=== PATIENT | male | born 1985 | race Caucasian/White ===

== ENCOUNTER 2016-09-02 23:32 | Emergency (ER) | payer BC, OTHER ==
[~2016-09-02] VITALS: Ht 185.4 cm; Wt 79.3 kg
[~2016-09-02 23:32] MED LIST: ALBUAER2 INH; BUPR100T4 PO; TRAZ1TAB16 PO
[2016-09-02 23:38] VITALS: TEMP 36.8; Ht 185.4 cm; Wt 79.3 kg
[2016-09-03] MEDS ORDERED: KETOROLAC TROMETHAMINE 60 MG/2 ML VIAL IM STA
--- NOTE | 2016-09-03 01:16 | EMERGENCY ROOM VISIT NOTE ---
History First contact with patient: 23:43 Chief Complaint: BACK PAIN Stated Complaint: LWR BACK PAIN History of Present Illness The patient is a 31 year old male who presents to the Emergency Room with complaints of low back pain after he was on the bed and his child jumped on his back. He describes the pain as severe, 9 out of 10 worse with movement and better with rest. It does not radiate. Patient denies radiating pain, fever, chills, IV drug abuse, numbness, tingling, loss of bowel or bladder control, saddle anesthesia, abdominal pain, chest pain or any other medical complaints. Review of Systems See HPI for pertinent positives & negatives. A total of 10 systems reviewed and were otherwise negative. Past Medical/Surgical History none Social History Smoking Status: Never Smoker Drug Use: none Housing Status: lives with family Current/Historical Medications Scheduled PRN Acetaminophen (Tylenol), 1,000 MG PO DIRECTED PRN for Pain or Fever Allergies Uncoded Allergies: BABY POWDER (Allergy, Unknown, rash, 09/02/16) Physical Exam Vital Signs Date Time Temp Pulse Resp B/P Pulse Ox O2 Delivery O2 Flow Rate FiO2 09/02/16 23:38 36.8 82 20 154/81 95 Room Air Physical Exam VITALS: Vitals are noted on the nurse's note and reviewed by myself. Vital signs stable. GENERAL: Pleasant male ambulate without difficulties, in no acute distress, nondiaphoretic, well-developed well-nourished. SKIN: Capillary reflex less than 2 seconds. HEENT: Normocephalic. PERRLA. EOMI. Nares patent. Mucous membranes moist. Neck is supple without nuchal rigidity. HEART: Regular rate and rhythm without murmurs gallops or rubs. LUNGS: Clear to auscultation bilaterally without wheezes, rales or rhonchi. No retractions or accessory muscle use. ABDOMEN: Positive bowel sounds x 4. Normal tympanic percussion. Soft, nontender, without masses or organomegaly. Peoples sign negative. No guarding or rebound tenderness. MUSCULOSKELETAL: No gross musculoskeletal defects. Lumbar tenderness over L4 5. No thoracic tenderness. Negative straight leg raise. Patient can walk on toes and heels. 5 out of 5 strength throughout. No pedal edema. No calf tenderness. NEURO: Patient was alert and oriented to person place and time. Normal sensation to light and sharp touch. Deep tendon reflexes 2+ patella bilaterally. No focal neurological deficits. Medical Decision & Procedures Medications Administered Medications (Trade) Dose Ordered Sig/Sammie Route Start Time Stop Time Status Last Admin Dose Admin Ketorolac Tromethamine (Toradol Inj) 60 mg NOW STAT IM 09/03/16 00:00 09/03/16 00:02 DC 09/03/16 00:10 60 MG ED Course Prior records/ancillary studies reviewed. Triage Nursing notes reviewed. The patient's history was concerning for back pain. Differential diagnosis: Etiologies such as musculoskeletal, disc herniation, fracture, aortic disease, metastatic disease, cord compression, discitis, infection, renal colic, gastrointestinal, acute exacerbation of chronic back pain, sciatica, cauda equina, as well as others were entertained. Physical findings: As above. No focal neurologic findings noted. ER treatment provided: Toradol On reassessment the patient felt better. Diagnostics interpreted by me: Imaging studies: CT L SPINE: No acute or healing fracture or malalignment. No critical central canal stenosis. No hematoma or other findings to explain the clinical presentation. Radiologist: Faheem Nguyen M.D. This appears to be consistent with lumber strain. Patient was neurovascularly and neurologically intact. No deficits on exam. Unremarkable workup as above. He was advised to stretch the area out to take anti-inflammatories as needed. He was advised to follow-up with family care in a few days or here in the ER sooner for severe pain, inability to walk, fevers, worsening signs or symptoms or as needed. The patient's physical examination and detailed history did not reveal any red flags for back pain such as those listed in the differential diagnosis. Therefore advanced diagnostics and consultations were felt to be unwarranted. By the evaluation outlined above emergent etiologies such as fracture, aortic disease, metastatic disease, infection, renal colic, gastrointestinal, cord compression, cauda equina, as well as others were deemed relatively unlikely. The pt informed about the findings as listed above. All questions were answered and pleased with the treatment. Return instructions were outlined and the patient was discharged in stable condition. Outpatient prescription management: motrin Referral: The patient was referred back to primary care physician for follow-up in 2 to 3 days for a recheck of the current condition. Medical Decision As above Impression Primary Impression: Lumbar strain Departure Information Dispostion Home / Self-Care Condition GOOD Referrals Napoleon Muñiz M.D. (PCP) Patient Instructions My [facility] Additional Instructions Ibuprofen(Motrin, Advil) may be used for fever or pain. Use 600mg every six hours as needed. Take with food. Avoid using more than 2400mg in a 24 hour period. Do not use 2400mg per day for more than three consecutive days without physician direction. Prolonged inappropriate use can lead to stomach upset or ulcers. This medication can be taken if you need to drive, work, or perform activities which may be dangerous when taking narcotic pain medication. (AND/OR) Acetaminophen(Tylenol) may be used for fever or pain. Use 1000mg every six hours as needed. Avoid using more than 3000mg in a 24 hour period. This medication can be taken if you need to drive, work, or perform activities which may be dangerous when taking narcotic pain medication. Rest and avoid heavy lifting until your symptoms resolve and then gradually return to full activity. A good rule of thumb is if it hurts your back to perform a certain activity, then it should be avoided until you are healthy again. A heating pad, warm compresses, or a hot shower may help with tight muscles and can be done several times a day as needed. Continue current medications. Return to the ER immediately for any numbness, tingling, severe pain, loss of control of your bowels or bladder, inability to walk, or as needed. Follow up with your primary care physician/orthopedics spine within 3-5 days for a recheck of your current condition. Problem Qualifiers Primary Impression: Lumbar strain Encounter type: initial encounter Qualified Codes: S39.012A - Strain of muscle, fascia and tendon of lower back, initial encounter
[2016-09-03] MEDS ORDERED: IBUP-1427 PO (01:17)
[2016-09-03 01:29] VITALS: BP 144/75; PULSE 59; O2SAT 95
[2016-09-03] MEDS ORDERED: MOTRIN HOME PACK 600 MG (4)BTL PO ONE (01:30)
--- NOTE | 2016-09-03 06:51 | DIAGNOSTIC IMAGING REPORT ---
CT OF THE LUMBAR SPINE WITHOUT CONTRAST CT DOSE: 571.92 mGycm CLINICAL HISTORY: Low back pain following injury. TECHNIQUE: Axial images of the lumbar spine were obtained without IV contrast. Sagittal and coronal reconstructions were viewed. COMPARISON STUDY: None. FINDINGS: There is slight leftward curvature of the lumbar spine. Alignment is otherwise anatomic. Vertebral body heights are maintained. No fracture or suspicious lesion is identified. The central canal and neural foramen are suboptimally assessed by CT. No severe central canal stenosis is identified. There may be mild disc bulge at the L5-S1 level. Paravertebral soft tissues are unremarkable by CT. An equivocal punctate calculus within lower pole the right kidney is noted. IMPRESSION: 1. No acute lumbar spine fracture or subluxation. 2. Mild leftward curvature of the lumbar spine. Electronically signed by: Jai Monreal M.D. 09/03/2016 6:50 AM Dictated Date/Time: 09/03/2016 6:47 AM
[2016-11-02] MEDS ORDERED: ACET-1256 PO (00:06)
[2016-11-02] MEDS ORDERED: IBUP-103 PO (20:39)
[2016-11-02] MEDS ORDERED: TRAZ50TA35 PO (20:39)
== END 2016-09-03 01:23 | disposition home or self-care (01) ==
LOC: C.EDB 23:33 → C.EDC 09-03 01:23
DX: S39.012A Strain of muscle, fascia and tendon of lower back, initial encounter (principal); W50.0XXA Accidental hit or strike by another person, initial encounter; Y92.013 Bedroom of single-family (private) house as the place of occurrence of the external cause

== ENCOUNTER 2016-11-02 19:38 | Emergency (ER) | payer BC, OTHER ==
[~2016-11-02] VITALS: Ht 185.4 cm; Wt 90.2 kg
[~2016-11-02 19:38] MED LIST changes: -ALBUAER2 INH; -BUPR100T4 PO; +IBUP-1427 PO; -TRAZ1TAB16 PO
[2016-11-02 19:41] VITALS: BP 138/92; TEMP 36.4; Ht 185.4 cm; Wt 90.2 kg
[2016-11-02] MEDS ORDERED: KETOROLAC TROMETHAMINE 60 MG/2 ML VIAL IM STA (20:26)
--- NOTE | 2016-11-02 20:28 | EMERGENCY ROOM VISIT NOTE ---
ED Visit Note First contact with patient: 19:46 CHIEF COMPLAINT: "Back pain and pain shooting down left leg". HISTORY OF PRESENT ILLNESS: This 31-year-old male patient presents to the emergency department via private vehicle complaining of pain in the low back which began around June, when his son jumped on his low back. The pain was gradual in onset, is now constant and worse with movement. He is dealing with the pain for some time now, however throughout the past few days it is seemed to worsen. The patient notes the pain as constant and a 10/10. The patient denies any loss of control of their bowel or bladder functions. There has been no leg numbness or weakness, and no change in sensation. No nausea or vomiting or abdominal pain. No chest pain or shortness of breath. The patient has had prior back injuries, and is scheduled for injections of his spine tomorrow. He states that he has seen a administrative and program specialist, who informed him that at this point he is not in need of surgery and the benefit from injections. No dysuria or increased urinary frequency. REVIEW OF SYSTEMS: A review of systems was performed with positives and pertinent negatives listed in the history of present illness. All other systems were reviewed and are negative. ALLERGIES: Baby powder MEDICATIONS: As noted below PMH: Heart disease SOCIAL HISTORY: Patient is currently employed PHYSICAL EXAM: VITALS: Vitals are noted on the nurse's note and reviewed by myself. Vital signs stable. GENERAL: 31-year-old male, in no acute distress, nondiaphoretic, well-developed well-nourished. SKIN: The skin was without rashes, erythema, edema, or bruising. Capillary refill less than 2 seconds. NECK: Supple without nuchal rigidity. No cervical spine tenderness. No paraspinous muscle tenderness. HEART: Regular rate and rhythm without murmurs gallops or rubs. LUNGS: Clear to auscultation bilaterally without wheezes, rales or rhonchi. ABDOMEN: Positive bowel sounds x 4. Normal tympanic percussion. Soft, nontender, without masses or organomegaly. Peoples sign negative. MUSCULOSKELETAL: No muscle atrophy, erythema, or edema noted of the back. There is no tenderness over the lumbar spinous processes. There is is tenderness over the paraspinous muscles of the lumbar spine radiating into the left leg. There is no tenderness over the thoracic spine or paraspinous muscles. There are no muscle spasms present. The patient is slow to move around with maximum tenderness with forward flexion. Positive straight leg raise test of the left. NEURO: Patient was alert and oriented to person place and time. Normal sensation to light and sharp touch. Deep tendon reflexes 2+ in the lower extremities. Strength 5/5 and equal in the bilateral lower extremities. EMERGENCY DEPARTMENT COURSE: Patient was seen and evaluated as above. He indicated he does have work this evening and is seeking medication to help him get through the shift until he can have the injections in the low back tomorrow. He was provided with an injection of Toradol here as well as dexamethasone. He declined any narcotic medication as he would be working and driving. I do believe this is reasonable. He does not have any emergent findings on examination. There is a history of chronic back pain, and he follows with a administrative and program specialist and is to have injections tomorrow by Dr. christensen. The patient was educated upon management today symptoms, educated upon worrisome symptoms which to return, had questions and provided discharge and was discharged home in good condition. In the evaluation and treatment this patient the following differential diagnoses were entertained: Acute exacerbation of chronic low back pain, cauda equina syndrome, AAA, abdominal etiologies, among others. Current/Historical Medications Scheduled Trazodone Hcl (Trazodone), 50 MG PO HS Scheduled PRN Acetaminophen (Tylenol), 1,000 MG PO Q6H PRN for Pain or Fever Ibuprofen Tab (Advil), 400-600 MG PO Q6H PRN for Pain Miscellaneous Medications Meloxicam (Meloxicam), 15 MG PO Allergies Uncoded Allergies: BABY POWDER (Allergy, Unknown, rash, 09/02/16) Vital Signs Date Time Temp Pulse Resp B/P Pulse Ox O2 Delivery O2 Flow Rate FiO2 11/02/16 21:13 72 16 97 11/02/16 19:41 36.4 78 16 138/92 96 Room Air Medications Administered Medications (Trade) Dose Ordered Sig/Sammie Route Start Time Stop Time Status Last Admin Dose Admin Ketorolac Tromethamine (Toradol Inj) 60 mg NOW STAT IM 11/02/16 20:26 11/02/16 20:28 DC 11/02/16 20:41 60 MG Dexamethasone Sodium Phosphate (Decadron Inj) 10 mg NOW ONCE IM 11/02/16 20:30 11/02/16 20:31 DC 11/02/16 20:40 10 MG Departure Information Impression Primary Impression: Lumbar radiculopathy Dispostion Home / Self-Care Condition GOOD Referrals Napoleon Muñiz M.D. (PCP) Patient Instructions My [facility] Additional Instructions You have been treated in the Emergency Department for Back Pain. You have been given an injection of Toradol and dexamethasone. These would help with pain and inflammation. Please keep your appointment tomorrow with Dr. christensen for the injections. Please follow-up with her family doctor regarding today's visit. Return to the Emergency Department if your current symptoms worsen despite treatment course outlined above, or if you develop any of the following symptoms : intractable pain despite aforementioned treatment course, loss of control of your bowel or bladder, numbness or tingling in your groin, or development of a fever. Thank you for your time.
[2016-11-02] MEDS ORDERED: DEXAMETHASONE SOD INJ 10 MG/ML VIAL IM ONE (20:30)
[2016-11-02] MEDS ORDERED: MELO15TA4 PO (20:39)
[2016-11-02 21:13] VITALS: PULSE 72; O2SAT 97
[2017-04-17] MEDS ORDERED: ACET-1256 PO (00:06)
[2017-05-18] MEDS ORDERED: FLUT0.15 NAE (11:00)
[2017-05-18] MEDS ORDERED: BENZ100C84 PO (11:00)
[2017-05-18] MEDS ORDERED: ZNTT/150 PO (11:00)
[2017-05-18] MEDS ORDERED: TUMS PO (11:00)
[2017-05-18] MEDS ORDERED: RXC/5 PO (11:00)
[2017-05-18] MEDS ORDERED: GABA800T PO (11:00)
[2017-05-18] MEDS ORDERED: MELO7.5T5 PO (11:00)
[2017-06-09] MEDS ORDERED: AMPH10CA3 PO (12:23)
[2017-06-09] MEDS ORDERED: AMT50 PO (12:24)
[2017-06-10] MEDS ORDERED: RXC5 PO (07:45)
== END 2016-11-02 21:14 | disposition home or self-care (01) ==
LOC: C.EDB 19:39 → C.EDD 21:14
DX: M54.16 Radiculopathy, lumbar region (principal); Z79.899 Other long term (current) drug therapy

== ENCOUNTER 2016-11-04 10:44 | Emergency (ER) | payer BC, OTHER ==
[~2016-11-04] VITALS: Ht 185.4 cm; Wt 89.0 kg
[~2016-11-04 10:44] MED LIST changes: -IBUP-1427 PO; +MELO15TA4 PO
[2016-11-04 10:48] VITALS: TEMP 36.5; Ht 185.4 cm; Wt 89.0 kg
[2016-11-04] MEDS ORDERED: MoRPHine SULFATE 10 MG/ML CARP/VIAL IM STA (11:32)
[2016-11-04 12:30] VITALS: BP 138/85; PULSE 69; O2SAT 97
[2016-11-04] MEDS ORDERED: OXYC-57 PO (12:36)
--- NOTE | 2016-11-04 12:37 | EMERGENCY ROOM VISIT NOTE ---
ED Visit Note First contact with patient: 11:17 CHIEF COMPLAINT: Low back pain HISTORY OF PRESENT ILLNESS: This 31-year-old male patient presents to the emergency department ambulatory complaining of pain in the low back with radiation down the left leg for the past 2 months. The patient states that he has had persistent worsening pain over the last 2 months, since his 2-year-old son jumped onto his back. He has been seen by his primary care provider and had an MRI performed last month which showed degenerative disc disease at L5 to S1 with mild to moderate left foraminal stenosis and disc protrusion at L5 to S1 with close proximity to the exiting nerve root. The patient states that his pain has worsened over the past few days. He has had difficulty getting out of bed and walking due to the pain. He previously did physical therapy and states that he stopped that approximately one week ago. He has an appointment to see pain management tomorrow morning for an injection. He has been taking gabapentin without relief. He has previously been on anti-inflammatories and muscle relaxers. He was seen here 2 days ago and was given Toradol, which gave him some relief. The patient notes the pain as throbbing and a 10/10. The patient denies any loss of control of their bowel or bladder functions. There has been no leg numbness or weakness, and no change in sensation. No nausea or vomiting or abdominal pain. No chest pain or shortness of breath. No dysuria or increased urinary frequency. REVIEW OF SYSTEMS: A review of systems was performed with positives and pertinent negatives listed in the history of present illness. All other systems were reviewed and are negative. ALLERGIES: Baby powder MEDICATIONS: See med list PMH: No significant past medical history. SOCIAL HISTORY: The patient lives locally with family. PHYSICAL EXAM: VITALS: Vitals are noted on the nurse's note and reviewed by myself. Vital signs stable. GENERAL: This is a 31-year-old male, in no acute distress, nondiaphoretic, well- developed well-nourished. SKIN: The skin was without rashes, erythema, edema, or bruising. Capillary refill less than 2 seconds. NECK: Supple without nuchal rigidity. No cervical spine tenderness. No paraspinous muscle tenderness. HEART: Regular rate and rhythm without murmurs gallops or rubs. LUNGS: Clear to auscultation bilaterally without wheezes, rales or rhonchi. ABDOMEN: Positive bowel sounds x 4. Normal tympanic percussion. Soft, nontender, without masses or organomegaly. Peoples sign negative. MUSCULOSKELETAL: No muscle atrophy, erythema, or edema noted of the back. There is no tenderness over the lumbar spinous processes. There is no tenderness over the paraspinous muscles. There is no tenderness over the thoracic spine or paraspinous muscles. There are no muscle spasms present. The patient is slow to move around with maximum tenderness with flexion. Negative straight leg raise test. NEURO: Patient was alert and oriented to person place and time. Normal sensation to light and sharp touch. Deep tendon reflexes 2+ in the lower extremities. Dorsalis pedis pulse 2+ bilaterally. Strength 5/5 and equal in the bilateral lower extremities. EMERGENCY DEPARTMENT COURSE: The patient was evaluated as above. He has results with him of a recent MRI. I do not feel that further imaging is necessary at this time. The patient was given 8 mg morphine IM with good relief of his pain. He has an appointment tomorrow with pain management. He will be given a short course of pain medication to take until his appointment tomorrow. The [place] prescription drug monitoring program was queried and no red flags were identified. The patient verbalized understanding of my assessment and treatment plan and he was discharged home in good condition. DIAGNOSIS: Low back pain Current/Historical Medications Scheduled Trazodone Hcl (Trazodone), 50 MG PO HS Scheduled PRN Acetaminophen (Tylenol), 1,000 MG PO Q6H PRN for Pain or Fever Ibuprofen Tab (Advil), 400-600 MG PO Q6H PRN for Pain Oxycodone/Acetaminophen 5MG/325MG (Percocet 5MG/325MG), 1-2 TABS PO Q4H PRN for Pain Miscellaneous Medications Meloxicam (Meloxicam), 15 MG PO Allergies Uncoded Allergies: BABY POWDER (Allergy, Unknown, rash, 09/02/16) Vital Signs Date Time Temp Pulse Resp B/P Pulse Ox O2 Delivery O2 Flow Rate FiO2 11/04/16 12:30 69 18 138/85 97 Room Air 11/04/16 10:48 36.5 69 18 159/89 97 Room Air Medications Administered Medications (Trade) Dose Ordered Sig/Sammie Route Start Time Stop Time Status Last Admin Dose Admin Morphine Sulfate (MoRPHine SULFATE INJ) 8 mg NOW STAT IM 11/04/16 11:32 11/04/16 11:34 DC 11/04/16 11:44 8 MG Departure Information Impression Primary Impression: Low back pain Dispostion Home / Self-Care Condition GOOD Prescriptions Oxycodone/Acetaminophen 5MG/325MG (PERCOCET 5MG/325MG) Tab 1-2 TABS PO Q4H Y for Pain, #10 TAB For Initial Treatment Prov: Jody Cabral .LUCI 11/04/16 Referrals Napoleon Muñiz M.D. (PCP) Patient Instructions My [facility] Additional Instructions You have been treated in the Emergency Department for Back Pain. You have received pain medicine in the emergency department which impairs your ability to operate a vehicle. It is illegal for you to drive after receiving these medicines. You have been prescribed Percocet to be used for pain control. This is a narcotic medication. You cannot drive or consume alcohol while on this medicine. This medicine should only be used for pain that cannot be controlled with [id number] pain medicines. For pain control, you can use the following itcw-gkf-olabfie medicines (if >12 yo): - Regular strength (325mg/tab) Tylenol (acetaminophen) 2 tabs every 4-6 hours as needed. Do not exceed 12 tablets in a 24 hour period. Avoid taking more than 4 grams (4000 mg) of Tylenol per day. This includes any other sources of acetaminophen you may take on a regular basis. - Regular strength (200 mg/tab) Advil (ibuprofen) 1-2 tabs every 4-6 hours as needed. Do not exceed a dose of 3200 mg per day. If this is an acute injury, ice can be applied to the area of pain for the first 3 days to help decrease pain and inflammation. After the first 3 days, a heating pad can be used over the area for continued soothing relief. Follow-up with pain management as scheduled. Return to the Emergency Department if your current symptoms worsen despite treatment course outlined above, or if you develop any of the following symptoms : intractable pain despite aforementioned treatment course, loss of control of your bowel or bladder, numbness or tingling in your groin, or development of a fever. Problem Qualifiers Primary Impression: Low back pain Chronicity: acute Back pain laterality: left Sciatica presence: with sciatica Sciatica laterality: sciatica of left side Qualified Codes: M54.42 - Lumbago with sciatica, left side
[2017-04-17] MEDS ORDERED: ACET-1256 PO (00:06)
[2017-05-18] MEDS ORDERED: TUMS PO (11:00)
[2017-05-18] MEDS ORDERED: FLUT0.15 NAE (11:00)
[2017-05-18] MEDS ORDERED: BENZ100C84 PO (11:00)
[2017-05-18] MEDS ORDERED: GABA800T PO (11:00)
[2017-05-18] MEDS ORDERED: ZNTT/150 PO (11:00)
[2017-05-18] MEDS ORDERED: RXC/5 PO (11:00)
[2017-05-18] MEDS ORDERED: MELO7.5T5 PO (11:00)
[2017-06-09] MEDS ORDERED: AMPH10CA3 PO (12:23)
[2017-06-09] MEDS ORDERED: AMT50 PO (12:24)
[2017-06-10] MEDS ORDERED: RXC5 PO (07:45)
== END 2016-11-04 12:46 | disposition home or self-care (01) ==
LOC: C.EDB 10:46 → C.EDC 12:46
DX: M54.42 Lumbago with sciatica, left side (principal)

== ENCOUNTER 2017-04-17 20:33 | Emergency (ER) | payer BC, OTHER ==
[~2017-04-17] VITALS: Ht 185.4 cm; Wt 90.0 kg
[~2017-04-17 20:33] MED LIST changes: +ACET-1256 PO; +OXYC-57 PO
[2017-04-17 20:35] VITALS: TEMP 36.7; Ht 185.4 cm; Wt 90.0 kg
[2017-04-17] MEDS ORDERED: IBUP-103 PO (20:39)
[2017-04-17] MEDS ORDERED: TRAZ50TA35 PO (20:39)
[2017-04-17] MEDS ORDERED: KETOROLAC TROMETHAMINE 60 MG/2 ML VIAL IM STA (20:50)
[2017-04-17] MEDS ORDERED: MoRPHine SULFATE 10 MG/ML CARP/VIAL IM STA (20:50)
[2017-04-17] MEDS ORDERED: ONDANSETRON 4MG OD TAB PO ONE (21:00)
[2017-04-17] MEDS ORDERED: VNTHFA/IN INH (21:06)
[2017-04-17] MEDS ORDERED: AMPH10TA2 PO (21:06)
[2017-04-17] MEDS ORDERED: NRN800 PO (21:06)
[2017-04-17] MEDS ORDERED: OXYC1TAB3 PO (22:04)
[2017-04-17] MEDS ORDERED: OXYCODONE IR HOME PACK PO ONE (22:15)
[2017-04-17 22:32] VITALS: BP 131/76; PULSE 58; O2SAT 96
--- NOTE | 2017-04-17 23:05 | EMERGENCY ROOM VISIT NOTE ---
History First contact with patient: 20:40 Chief Complaint: BACK PAIN Stated Complaint: LOWER BACK PAIN History of Present Illness The patient is a 31 year old male, history of chronic lumbar pain, who presents to the Emergency Room with complaints of acute exacerbation of his pain today while walking around his 's car. He was not doing any heavy lifting, but does report that he been over several times. 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 The patient reports that the pain did not improve, and was asked to the emergency department for further treatment. The patient reports that he had a recent epidural steroid injection performed by Dr. Granados on 04/15/17. He is also currently taking gabapentin 800 mg 3 times a day, applying heat and ice, and Tylenol if needed for additional pain relief. The patient reports pain radiating down the left lower extremity to the foot. This is a normal symptom for the patient. He does report a burning sensation radiating into the right buttock and thigh which is new. He denies any bladder/bowel incontinence, lower extremity weakness/foot drop or saddle anesthesias. The patient rates his discomfort a 9 out of 10. Review of Systems 10 system review was performed and was negative except for pertinent positives and negatives as indicated in history of present illness Past Medical/Surgical History Medical Problems: (1) Radiculopathy, Lumbar Region (2) Tobacco Use Disorder Surgical Problems: (1) No history of previous surgery Family History Unremarkable Social History Smoking Status: Current Every Day Smoker Drug Use: none Housing Status: lives with family Current/Historical Medications Scheduled Amphetamine-Dextroamphetamine 10MG (Adderall 10MG), 10 MG PO DAILY Gabapentin (Gabapentin), 800 MG PO TID Scheduled PRN Acetaminophen (Tylenol), 1,000 MG PO Q6H PRN for Pain or Fever Albuterol Hfa (Ventolin Hfa), 2 PUFFS INH Q4H PRN for SOB/Wheezing Ibuprofen Tab (Advil), 400-600 MG PO Q6H PRN for Pain Oxycodone Ir (Roxicodone Ir), 1-2 TAB PO Q4H PRN for Pain Trazodone Hcl (Trazodone), 50 MG PO HS PRN for Sleep Physical Exam Vital Signs Date Time Temp Pulse Resp B/P (MAP) Pulse Ox O2 Delivery O2 Flow Rate FiO2 10/7/17 22:32 58 18 131/76 96 04/17/17 20:35 36.7 87 18 139/82 97 Room Air Physical Exam CONSTITUTIONAL: Healthy and well nourished. Alert and oriented X 3 with positive affect. Patient appears in mild discomfort from pain. He is lying supine on the examination bed. HEENT: Normocephalic, atraumatic. Pupils equal, round and reactive. NECK: Full active range of motion without discomfort. RESPIRATORY: Clear to auscultation bilaterally with no wheezing, crackles, rhonchi or stridor. CARDIOVASCULAR: Regular rate and rhythm with no murmurs, rubs or gallops. GASTROINTESTINAL: Bowel sounds present in all quadrants. Soft and nontender to palpation. MUSCULOSKELETAL: The patient is able to comfortably roll onto his left side in the lateral recumbent position. Examination shows no focal tenderness through the central lumbar spine, paraspinous muscles or SI joints. Negative straight leg raise. Negative logroll. Ankle plantar/dorsiflexion strength is 5 out of 5 and symmetric bilaterally. Pedal pulses are intact. INTEGUMENTARY: No rash or other significant dermatologic conditions noted. NEUROLOGIC: No focal neurologic deficits noted. Lower extremity deep tendon reflexes are 2+ and symmetric bilaterally. Bilateral feet are sensory intact. Medical Decision & Procedures Medications Administered Medications (Trade) Dose Ordered Sig/Sammie Route Start Time Stop Time Status Last Admin Dose Admin Morphine Sulfate (MoRPHine SULFATE INJ) 10 mg NOW STAT IM 04/17/17 20:50 04/17/17 20:51 DC 04/17/17 21:12 10 MG Ketorolac Tromethamine (Toradol Inj) 60 mg NOW STAT IM 04/17/17 20:50 04/17/17 20:51 DC 04/17/17 21:12 60 MG Ondansetron HCl (Zofran Odt) 4 mg ONE ONCE PO 04/17/17 21:00 04/17/17 21:01 DC 04/17/17 21:11 4 MG Oxycodone HCl (Roxicodone Immediate Rel 5MG Home Pack) 1 homepack UD ONCE PO 04/17/17 22:15 04/17/17 22:16 DC 04/17/17 22:15 1 HOMEPACK ED Course Patient history and physical exam were performed. Nurse's notes were reviewed. Vital signs were reviewed and were normal. The [place] Prescription Drug Monitoring Program was reviewed with no red flags. The patient was administered morphine 10 mg and Toradol 60 mg IM, along with Zofran 4 mg ODT. After observation for 45 minutes, the patient rated his pain a 2 out of 10, and felt well enough for discharge. The patient was dispensed a home pack and prescription for OxyIR 5 mg. He was encouraged to alternate ibuprofen and Tylenol for baseline pain relief. He was instructed to avoid heavy lifting or sitting for long periods of time. The patient was instructed to follow-up with Dr. Granados for further reevaluation and management. Return to the emergency department for emergent symptoms such as bladder/bowel incontinence, saddle anesthesias, profound lower extremity weakness/foot drop, fever or other concerning symptoms. The patient was happy with plan of care, and voiced understanding of all discharge instructions. Medical Decision History and clinical exam are not consistent with cauda equina syndrome. He gives no history to suggest spinal abscess or hematoma. I do not feel that further imaging studies are warranted. The patient has had MRI studies in the past. [place] Drug Monitoring Program Search Results: patient reviewed within database, no issues identified Medication Reconcilliation Current Medication List: was personally reviewed by pa Blood Pressure Screening Patient's blood pressure: Normal blood pressure Impression Primary Impression: Acute exacerbation of chronic low back pain Departure Information Dispostion Home / Self-Care Condition GOOD Prescriptions Oxycodone Ir (Roxicodone Ir) 5 Mg Tab 1-2 TAB PO Q4H Y for Pain, #15 TAB For Initial Treatment Prov: Henri Martin PA 04/17/17 Referrals Young Granados D.O. Forms HOME CARE DOCUMENTATION FORM, IMPORTANT VISIT INFORMATION Patient Instructions My [facility] Additional Instructions Avoid heavy lifting or sitting for long periods of time. Ibuprofen 800 mg and/or Tylenol 1000 mg every 8 hours. You may also alternate these medications for more effective pain relief: Ibuprofen --4 HRS--> Tylenol --4 HRS--> ibuprofen --4 HRS--> Tylenol .... OxyIR if needed for worse pain. Do not drink or drive while taking OxyIR. Follow-up with Dr. Granados for further reevaluation and management. Return to the emergency department for any significantly worsening pain, fever, bladder/bowel incontinence or leg weakness.
== END 2017-04-17 22:33 | disposition home or self-care (01) ==
LOC: C.EDB 20:33 → C.EDD 22:33
DX: M54.5 Low back pain (principal); F17.210 Nicotine dependence, cigarettes, uncomplicated

== ENCOUNTER 2017-06-12 12:48 | Emergency (ER) | payer OTHER ==
[~2017-06-12] VITALS: Ht 185.4 cm; Wt 92.0 kg
[~2017-06-12 12:48] MED LIST changes: +AMPH10CA3 PO; +AMPH10TA2 PO; +AMT50 PO; +BENZ100C84 PO; +FLUT0.15 NAE; +GABA800T PO; -MELO15TA4 PO; -OXYC-57 PO; +RXC/5 PO; +RXC5 PO; +TRAZ50TA35 PO; +TUMS PO; +VNTHFA/IN INH; +ZNTT/150 PO
[2017-06-12 12:59] VITALS: TEMP 37.1; Ht 185.4 cm; Wt 92.0 kg
[2017-06-12] MEDS ORDERED: KETOROLAC TROMETHAMINE 30 MG/ML VIAL IV STA (13:24)
[2017-06-12] MEDS ORDERED: ONDANSETRON INJ 2 MG/ML 2 ML VIAL IV STA (13:24)
[2017-06-12] MEDS ORDERED: HYDROmorphone INJ 1 MG/ML SYR IV PRN (13:30)
[2017-06-12 13:53] LABS: BASO % 0.2 %; BASO ABS # 0.04 K/uL (0-0.2); COMPLETE YES; EOS % 0.7 %; HEMATOCRIT 47.9 % (42-52); IG% 0.8 %; LYMPH ABS # 2.96 K/uL (1.2-3.4); MEAN CELL VOLUME 91.4 fL (80-100); MEAN CORPUSCULAR HEMOGLOBIN 32.8 pg (25-34); MEAN CORPUSCULAR HGB CONC 35.9 g/dl (32-36); MEAN PLATELET VOLUME 10.2 fL (7.4-10.4); MONO % 16.1 %; NEUT % 65.2 %; PLATELET COUNT 222 K/uL (130-400); RED BLOOD COUNT 5.24 M/uL (4.7-6.1); WHITE BLOOD COUNT 17.41 K/uL (4.8-10.8)
[2017-06-12 13:55] LABS: URINE APPEARANCE CLEAR (CLEAR); URINE BILIRUBIN NEG (NEG); URINE COLOR YELLOW; URINE EPITHELIAL CELL AUTO 0-5 /lpf (0-5); URINE NITRITE NEG (NEG); URINE SPECIFIC GRAVITY 1.013 (1.000-1.030); UROBILINOGEN NEG (NEG); ZZUR CULT IF INDIC CLEAN CATCH NO
[2017-06-12 13:56] LABS: MANUAL MICROSCOPIC REQUIRED? NO; REVIEW REQ? NO
[2017-06-12 14:19] LABS: BUN/CREATININE RATIO 14.6 (10-20); CALCIUM 9.2 mg/dl (8.5-10.1); CREATININE 0.96 mg/dl (0.60-1.40)
[2017-06-12 14:20] LABS: POTASSIUM 3.3 mmol/L (3.5-5.1)
[2017-06-12] MEDS ORDERED: DEXAMETHASONE **PF** INJ 10 MG/ML VIAL IV ONE (16:00)
[2017-06-12] MEDS ORDERED: HYDR-5688 PO ×2 (17:36→17:40)
[2017-06-12] MEDS ORDERED: PRED50TA PO (17:40)
[2017-06-12] MEDS ORDERED: NORCO 5/325MG HOME PACK PO ONE (17:45)
[2017-06-12 18:03] VITALS: BP 119/64; PULSE 78; O2SAT 98
--- NOTE | 2017-06-12 18:34 | EMERGENCY ROOM VISIT NOTE ---
History Report prepared by Marin: Mari Ledesma Under the Supervision of: Dr. Bayron Arzola M.D. First contact with patient: 13:07 Chief Complaint: BACK PAIN Stated Complaint: BACK PAIN FROM SURGERY History of Present Illness The patient is a 32 year old male who presents to the Emergency Room with complaints of constant back pain beginning at 1900 last night. The patient had a spinal stenosis surgery on June 09 and was discharged June 11. The patient states that he took Oxycodone for his pain, but then it got worse. He rates the pain at an 8/10 while he is still, but rates it as a 9/10 when moving. He also reports having generalized weakness, and a mild headache, but denies nausea, vomiting, fevers, chest pain, abdominal pain, saddle anesthesia, lower extremity numbness, neck pain, rash, wound drainage, wound dehiscence, and shortness of breath. The patient also reports having leg pain and states that he had this pain before his surgery. The patient notes that Oxycodone usually does not work well for his pain. Source of History: patient Onset: 1899 last night Position: back Symptom Intensity: rated at an 8/9 out of 10 Timing: constant Associated Symptoms: + headache, + weakness, No fevers Review of Systems See HPI for pertinent positives and negatives. A total of ten systems were reviewed and were otherwise negative. Past Medical & Surgical Medical Problems: (1) Lumbar stenosis with neurogenic claudication (2) Radiculopathy, Lumbar Region (3) Tobacco Use Disorder Surgical Problems: (1) No history of previous surgery Family History No pertinent family history stated. Social History Smoking Status: Current Every Day Smoker Drug Use: none Housing Status: lives with family Current/Historical Medications Scheduled Amitriptyline Hcl (Elavil), 50 MG PO HS Gabapentin (Neurontin), 800 MG PO TID Prednisone (Prednisone), 50 MG PO DAILY Scheduled PRN Acetaminophen (Tylenol), 1,000 MG PO Q6H PRN for Pain or Fever Albuterol Hfa (Ventolin Hfa), 2 PUFFS INH Q4H PRN for SOB/Wheezing Benzonatate (Tessalon Perles), 1 CAP PO TID PRN for Cough Calcium Carbonate (Tums), 1 TAB PO DAILY PRN for Indigestion Fluticasone Propionate (Nasal) (Flonase Allergy Relief), 1 SPRAY [place]RI[place] DAILY PRN for PRN Hydrocodone/Acetaminophen 5MG/325MG ([place] 5MG/325MG), 1-2 TABS PO Q6H PRN for Pain Oxycodone HCl (Oxycodone HCl), 5-10 MG PO Q4H PRN for Pain Ranitidine (Zantac), 150 MG PO DAILY PRN for Indigestion Trazodone Hcl (Trazodone), 50 MG PO HS PRN for Sleep Allergies Coded Allergies: NO KNOWN DRUG ALLERGIES (Verified Allergy, Unknown, nkda, 06/12/17) Uncoded Allergies: BABY POWDER (Allergy, Unknown, RASH, 05/18/17) Physical Exam Vital Signs Date Time Temp Pulse Resp B/P (MAP) Pulse Ox O2 Delivery O2 Flow Rate FiO2 06/12/17 18:03 78 18 119/64 98 Room Air 06/12/17 16:27 79 14 118/67 96 Room Air 06/12/17 16:18 83 15 93 06/12/17 15:48 80 19 93 06/12/17 15:18 85 27 06/12/17 14:54 84 06/12/17 14:45 101/60 06/12/17 14:05 94 20 111/71 99 Room Air 06/12/17 12:59 37.1 109 20 126/79 99 Room Air Physical Exam GENERAL: Awake, alert, uncomfortable-appearing, in moderate distress HENT: Normocephalic, atraumatic. Oropharynx unremarkable. EYES: Normal conjunctiva. Sclera non-icteric. NECK: Supple. No nuchal rigidity. FROM. No JVD. RESPIRATORY: Clear to auscultation. CARDIAC: Regular rate, normal rhythm. Extremities warm and well perfused. Pulses equal. ABDOMEN: Soft, non-distended. No tenderness to palpation. No rebound or guarding. No masses. RECTAL: Deferred. MUSCULOSKELETAL: The back is symmetrical on inspection without obvious abnormality. Incision on low back that is clean, dry, and intact. No signs of infection. No redness. There is some lower sacral and gluteal tenderness extending down into his posterior thigh. There is no CVA tenderness to palpation. No joint edema. LOWER EXTREMITIES: Calves are equal size bilaterally and non-tender. No edema. No discoloration. NEURO: Normal sensorium. No sensory or motor deficits noted. No saddle anesthesias. SKIN: No rash or jaundice noted. Medical Decision & Procedures Laboratory Results 06/12/17 13:20 Red Blood Count 5.24, Mean Corpuscular Volume 91.4, Mean Corpuscular Hemoglobin 32.8, Mean Corpuscular Hemoglobin Concent 35.9, Mean Platelet Volume 10.2, Neutrophils (%) (Auto) 65.2, Lymphocytes (%) (Auto) 17.0, Monocytes (%) (Auto) 16.1, Eosinophils (%) (Auto) 0.7, Basophils (%) (Auto) 0.2, Neutrophils # (Auto ) 11.33, Lymphocytes # (Auto) 2.96, Monocytes # (Auto) 2.81, Eosinophils # (Auto ) 0.13, Basophils # (Auto) 0.04 06/12/17 13:20 Test 06/12/17 00:00 06/12/17 13:20 Urine Color YELLOW Urine Appearance CLEAR (CLEAR) Urine pH 6.0 (4.5-7.5) Urine Specific [place] 1.013 (1.000-1.030) Urine Protein NEG (NEG) Urine Glucose (UA) NEG (NEG) Urine Ketones NEG (NEG) Urine Occult Blood TRACE (NEG) Urine Nitrite NEG (NEG) Urine Bilirubin NEG (NEG) Urine Urobilinogen NEG (NEG) Urine Leukocyte Esterase NEG (NEG) Urine WBC (Auto) 0 /hpf (0-5) Urine RBC (Auto) 0-4 /hpf (0-4) Urine Hyaline Casts (Auto) 0 /lpf (0-5) Urine Epithelial Cells (Auto) 0-5 /lpf (0-5) Urine Bacteria (Auto) NEG (NEG) White Blood Count 17.41 K/uL (4.8-10.8) Red Blood Count 5.24 M/uL (4.7-6.1) Hemoglobin 17.2 g/dL (14.0-18.0) Hematocrit 47.9 % (42-52) Mean Corpuscular Volume 91.4 fL (80-100) Mean Corpuscular Hemoglobin 32.8 pg (25-34) Mean Corpuscular Hemoglobin Concent 35.9 g/dl (32-36) Platelet Count 222 K/uL (130-400) Mean Platelet Volume 10.2 fL (7.4-10.4) Neutrophils (%) (Auto) 65.2 % Lymphocytes (%) (Auto) 17.0 % Monocytes (%) (Auto) 16.1 % Eosinophils (%) (Auto) 0.7 % Basophils (%) (Auto) 0.2 % Neutrophils # (Auto) 11.33 K/uL (1.4-6.5) Lymphocytes # (Auto) 2.96 K/uL (1.2-3.4) Monocytes # (Auto) 2.81 K/uL (0.11-0.59) Eosinophils # (Auto) 0.13 K/uL (0-0.5) Basophils # (Auto) 0.04 K/uL (0-0.2) RDW Standard Deviation 41.5 fL (36.4-46.3) RDW Coefficient of Variation 12.4 % (11.5-14.5) Immature Granulocyte % (Auto) 0.8 % Immature Granulocyte # (Auto) 0.14 K/uL (0.00-0.02) Anion Gap 7.0 mmol/L (3-11) Est Creatinine Clear Calc Drug Dose 127.1 ml/min Estimated GFR () 122.4 Estimated GFR (Non- 105.6 BUN/Creatinine Ratio 14.6 (10-20) Calcium Level 9.2 mg/dl (8.5-10.1) Total Bilirubin 0.7 mg/dl (0.2-1) Direct Bilirubin 0.2 mg/dl (0-0.2) Aspartate Amino Transf (AST/SGOT) 42 U/L (15-37) Alanine Aminotransferase (ALT/SGPT) 89 U/L (12-78) Alkaline Phosphatase 100 U/L (45-117) Total Protein 7.9 gm/dl (6.4-8.2) Albumin 3.8 gm/dl (3.4-5.0) Lipase 105 U/L (73-393) Laboratory results reviewed by me Medications Administered Medications (Trade) Dose Ordered Sig/Sammie Route Start Time Stop Time Status Last Admin Dose Admin Hydromorphone HCl (Dilaudid Inj) 1 mg Q15M PRN IV 06/12/17 13:30 06/26/17 13:29 06/12/17 14:04 1 MG Ketorolac Tromethamine (Toradol Inj) 10 mg NOW STAT IV 06/12/17 13:24 06/12/17 13:25 DC 06/12/17 14:04 10 MG Ondansetron HCl (Zofran Inj) 4 mg NOW STAT IV 06/12/17 13:24 06/12/17 13:25 DC 06/12/17 14:03 4 MG Dexamethasone Sodium Phosphate (Dexamethasone Inj Pf) 10 mg NOW ONCE IV 06/12/17 16:00 06/12/17 16:01 DC 06/12/17 16:27 10 MG Acetaminophen/ Hydrocodone Bitart ([place] 5/325mg Home Pack) 1 homepack UD ONCE PO 06/12/17 17:45 06/12/17 17:46 DC 06/12/17 18:12 1 HOMEPACK ED Course 1323: The patient was evaluated in room C12B. A complete history and physical exam was performed. 1324: Ordered Zofran Inj 4 mg IV, Toradol Inj 10 mg IV. 1330: Ordered Dilaudid Inj 1 mg IV. 1550: Discussed the patient's case with Renetta Adorno PA-C. She recommended a dose of steroids and pain management. 1600: Ordered Dexamethasone Sodium Phosphate 10 mg IV. 1735: I reevaluated the patient. Discussed results and discharge instructions: He verbalized understanding and agreement. The patient is ready for discharge. Medical Decision Triage Nursing notes reviewed. The patient's presentation and history were concerning for pain after recent surgery. Etiologies such as postoperative pain, lumbago, sciatica, cauda equina, epidural abscess, osteomyelitis, fracture, aortic disease, metastatic disease, infection, renal colic, gastrointestinal, as well as others were entertained. The patient was doing well. He has no sign of wound dehiscence or infection. He was given Dilaudid, Toradol and Zofran. He was gradually getting better on reassessment. He was given Decadron. I did consult with his spine team and spoke with Dr. Doll's physiotherapy assistant, Renetta Adorno PA-C. Steroids were recommended and close follow-up in the office was felt to be reasonable. The patient will touch base with the office on Wednesday. The patient felt comfortable with changing his pain medication. He will stop the oxycodone. I gave him a small amount of hydrocodone to use as a substitute. He will also have prednisone. If he worsens in any way he will come back to the emergency from for reevaluation. By the evaluation outlined above other emergent etiologies such as those listed in the differential, as well as others, were deemed relatively unlikely. The patient was educated about the findings as listed above. All questions were answered and the patient was pleased with the treatment. Return instructions were outlined and the patient was discharged in stable condition. The patient was referred to Dr. Doll for follow-up for a recheck of the current condition. [place] Drug Monitoring Program Search Results: patient reviewed within database Drug Monitoring Findings: current prescriptions noted Medication Reconcilliation Current Medication List: was personally reviewed by me Blood Pressure Screening Patient's blood pressure: Normal blood pressure Consults Time Called: 1427 Consulting Physician: Renetta Adorno PA-C [facility] Returned Call: [phone] Discussed the patient's case with Renetta Adorno PA-C. She recommended a dose of steroids and pain management. Impression Primary Impression: Postoperative back pain Scribe Attestation The scribe's documentation has been prepared under my direction and personally reviewed by me in its entirety. I confirm that the note above accurately reflects all work, treatment, procedures, and medical decision making performed by me. Departure Information Dispostion Home / Self-Care Prescriptions Prednisone (Prednisone) 50 Mg Tab 50 MG PO DAILY for 4 Days, #4 TAB Prov: Bayron Arzola MD 06/12/17 Hydrocodone/Acetaminophen 5MG/325MG ([place] 5MG/325MG) Tab 1-2 TABS PO Q6H Y for Pain, #12 TAB Prov: Bayron Arzola MD 06/12/17 Referrals Napoleon Muñiz M.D. (PCP) Forms HOME CARE DOCUMENTATION FORM, IMPORTANT VISIT INFORMATION Patient Instructions My [facility] Additional Instructions DO NOT drive, drink alcohol, operate machinery, or perform dangerous activities today. You were given medications in the ER that can affect your ability to safely function or operate a vehicle. Prednisone 50mg: Once daily until the prescription is finished. It is best to take this earlier in the day as some patients note occasional difficulty falling asleep when taken in the late evening. Stop the oxycodone Hydrocodone/acetaminophen 5/325mg: Take 1-2 pills every 6 hours as needed for pain. Avoid additional Acetaminophen/Tylenol, alcohol, operating machinery or dangerous equipment, working on ladders or roofs, DRIVING, or situations where being under the influence may be dangerous. It is recommended to use a stool softener such as Colace, 100mg twice daily while taking this medication to avoid constipation. Rest and avoid heavy lifting until your symptoms resolve and then gradually return to full activity. A good rule of thumb is if it hurts your back to perform a certain activity, then it should be avoided until you are healthy again. Continue current medications. Return to the ER immediately for any numbness, tingling, severe pain, loss of control of your bowels or bladder, inability to walk, opening of the wound, fever, redness of the wound, or as needed. Follow up with Dr. Doll's office on Wednesday for a recheck of your current condition.
== END 2017-06-12 18:15 | disposition home or self-care (01) ==
LOC: C.EDB 12:49 → C.EDC 18:15
DX: G89.18 Other acute postprocedural pain (principal); M48.062 Spinal stenosis, lumbar region with neurogenic claudication; M54.16 Radiculopathy, lumbar region; F17.210 Nicotine dependence, cigarettes, uncomplicated; Z79.899 Other long term (current) drug therapy